=== PATIENT | female | born 1980 | race Caucasian/White ===

== ENCOUNTER 2024-12-18 09:21 | Emergency (ER) | payer OTHER ==
[2024-12-18] MEDS ORDERED: Ibuprofen 200 MG TAB ONE (09:34)
[2024-12-18] MEDS ORDERED: Acetaminophen 500 MG TAB ONE (09:35)
[2024-12-18] MEDS ORDERED: Boostrix 0.5 ML (Tdap) VIAL (>/=7 yrs of age) ONE (10:15)
== END 2024-12-18 10:47 | disposition short-term general hospital (02) ==
LOC: NAV ERS 09:21
DX: T23.261A Burn of second degree of back of right hand, initial encounter (principal); Z23 Encounter for immunization; X19.XXXA Contact with other heat and hot substances, initial encounter
CPT/HCPCS: 90471; 90715